=== PATIENT | male | born 1995 | race African-American/Black ===

== ENCOUNTER 2016-07-16 13:11 | Emergency (ER) | payer OTHER ==
[~2016-07-16] VITALS: Ht 177.8 cm; Wt 77.1 kg
[~2016-07-16 13:11] MED LIST: HYDR25T PO; NICO14PA TD; SERT-138 PO; TRAZO50TA PO; VENL75CA PO
[2016-07-16] MEDS ORDERED: PROP60TA14 PO (13:31)
[2016-07-16] MEDS ORDERED: EFFE75CA75 PO (13:31)
[2016-07-16] MEDS ORDERED: NICOTINE 21MG/24HR 1 EA TRANSDERMAL TD ONE (13:45)
[2016-07-16 14:31] LABS: MEAN CORPUSCULAR HEMOGLOBIN 28.9 pg (27.0-33.0); MEAN CORPUSCULAR HGB CONC 33.7 g/dl (32.0-36.5); MEAN CORPUSCULAR VOLUME 85.7 fl (80.0-96.0); RED CELL DISTRIBUTION WIDTH 12.6 % (11.5-14.5); WHITE BLOOD COUNT 7.6 K/mm3 (4.0-10.0)
[2016-07-16 14:57] LABS: METHADONE URINE NEGATIVE (NEGATIVE)
[2016-07-16 15:00] LABS: ALBUMIN 4.2 GM/DL (3.2-5.2); ALBUMIN/GLOBULIN RATIO 1.27 (1.00-1.93); ALKALINE PHOSPHATASE 97 U/L (45-117); ALT/SGPT 34 U/L (12-78); ANION GAP 7 MEQ/L (8-16); AST/SGOT 16 U/L (15-37); BILIRUBIN,DIRECT < 0.1 MG/DL (0.0-0.2); BILIRUBIN,TOTAL 0.2 MG/DL (0.2-1.0); BLOOD UREA NITROGEN 10 MG/DL (7-18); CALCIUM LEVEL 8.7 MG/DL (8.5-10.1); CARBON DIOXIDE LEVEL 29 MEQ/L (21-32); CHLORIDE LEVEL 102 MEQ/L (98-107); CREATININE FOR GFR 1.07 MG/DL (0.70-1.30); GLOMERULAR FILTRATION RATE > 60.0 (>60); GLUCOSE, FASTING 102 MG/DL (70-105); POTASSIUM SERUM 3.8 MEQ/L (3.5-5.1); SODIUM LEVEL 138 MEQ/L (136-145); TOTAL PROTEIN 7.5 GM/DL (6.4-8.2)
[2016-07-16] MEDS ORDERED: VENL75CA47 PO (15:29)
[2016-07-16] MEDS ORDERED: HYDR50CA2 PO (15:29)
[2016-07-16] MEDS ORDERED: PROP1TAB29 PO (15:29)
[2016-07-16] MEDS ORDERED: AMBI10TA PO (15:29)
[2016-07-16] MEDS ORDERED: RIZA5TAB3 PO (15:29)
[2016-07-16 16:19] VITALS: BP 128/61
== END 2016-07-16 16:21 | disposition home or self-care (01) ==
LOC: M ED 15:45
DX: F60.9 Personality disorder, unspecified (principal); I10 Essential (primary) hypertension; F99 Mental disorder, not otherwise specified; F17.210 Nicotine dependence, cigarettes, uncomplicated; Z88.8 Allergy status to other drugs, medicaments and biological substances; Z79.899 Other long term (current) drug therapy
CPT/HCPCS: 36415; 80048; 80076; 80306; 84443; 85027; 99284; G0480